=== PATIENT | female | born 1970 | race Caucasian/White ===

== ENCOUNTER 2023-10-12 22:28 | Emergency (ER) | payer OTHER, SELFPAY ==
[2023-10-12 22:29] VITALS: BP 160/106
[2023-10-12 22:49] VITALS: BMI 27.1
[2023-10-12 22:56] VITALS: BP 155/90
[2023-10-12 23:00] VITALS: BP 141/98
[2023-10-12 23:00] LABS: % Basophils 0.8 % (0-2); % Eosinophils 2.8 % (0-6); % Immature Granulocytes 0.2 % (0-0.5); % Lymphocytes 33.3 % (20.5-51.1); % Neutrophils 51.9 % (42.2-75.2); Absolute Basophils 0.1 10^3/uL (0-0.2); Absolute Eosinophils 0.2 10^3/uL (0-0.7); Absolute Lymphocytes 2.2 10^3/uL (1.2-3.4); Absolute Monocytes 0.7 10^3/uL (0.1-0.6); Absolute Neutrophils 3.4 10^3/uL (1.4-6.5); Hematocrit 39.9 % (37.0-47.0); Hemoglobin 13.7 g/dL (12.0-16.0); Mean Corp Hgb Conc. 34.3 g/dL (33.0-37.0); Mean Corpuscular Hgb 30.3 pg (27.0-31.0); Mean Corpuscular Volume 88.3 fL (81.0-99.0); Nucleated Red Blood Cells % 0 %; Platelet Count 212 10^3/uL (130-400); Red Blood Cell Count 4.52 10^6/uL (4.20-5.40); Red Cell Dist. Width 11.4 % (11.5-14.5); White Blood Cell Count 6.5 10^3/uL (4.8-10.8)
[2023-10-12 23:27] LABS: Troponin I < 0.012 ng/ml
[2023-10-12 23:32] LABS: ALT (SGPT) 28 U/L (0-35); AST (SGOT) 22 U/L (14-36); Alkaline Phosphatase 82 U/L (38-126); Blood Urea Nitrogen 12 mg/dl (7-17); Calcium 10.3 mg/dl (8.4-10.2); Carbon Dioxide 27 mmol/L (22-30); Chloride 103 mmol/L (98-107); Estimated Creatinine Clearance 88 ml/min; Glucose 88 mg/dl (70-99); Potassium 4.2 mmol/L (3.5-5.1); Sodium 142 mmol/L (135-145); Total Bilirubin 0.4 mg/dl (0.2-1.3); Total Protein 6.9 g/dl (6.3-8.2); eGFR > 60.00
--- NOTE | 2023-10-12 23:54 | ED.GENMED ---
History of Present Illness
General
Chief Complaint: Chest Pain
Source: patient and family
Exam Limitations: none
Time Seen by Provider: 10/12/23 22:55
Nursing documentation reviewed up to this point in time: agreed with
Travel History
Have you had any contact with someone who has COVID-19?: No
Do you have any symptoms of coronavirus? Fever > 100 degrees, chills, cough, shortness of breath, sore throat, loss of taste or smell, muscle aches, or headache?: No
History of Present Illness
History of Present Illness:
Pleasant 53-year-old female that presents with shortness of breath that has been present for the last 5 days. She states that she has had chest pain for the last 3 days. She reports that the chest pain has worsened over the last 2 days. Patient
denies fever, chills, nausea or vomiting. Reports no shortness of breath while at rest. Denies cardiac history but does report a family history of pulmonary emboli. Her mother has had multiple pulmonary emboli. Patient has no history of PE.
Past History
Past History
ED Past Medical History: Asthma
ED Past Surgical History: Appendectomy, Cholecystectomy, , Gynecological and Tonsilectomy
Social History
Tobacco: Non-smoker
Alcohol: None
Drug: None
Living: with family
Employment: Employed
Review of Systems
Review of Systems
Allergies reviewed?: Yes
Other source history: family
All Other Systems: ROS reviewed and negative except as documented in HPI and ROS
Constitutional: Reports no symptoms
EENT: Reports no symptoms
Respiratory: Reports trouble breathing
Cardiac: Reports chest pain
ABD/GI: Reports no symptoms
: Reports no symptoms
Musculoskeletal: Reports no symptoms
Skin: Reports no symptoms
Neurological: Reports no symptoms
Endocrine: Reports no symptoms
Hematologic/Lymphatic: Reports no symptoms
Psychiatric: Reports no symptoms
Phy Exam
General Physical Exam
General Presentation: well appearing and no apparent distress
General Skin: warm and dry
General Habitus: normal
General Mental: alert
General Hydration: appears well hydrated
ENT Exam
ENT Exam: EOMI, pharynx normal, neck supple and normocephalic
Eye Exam
Eye Exam: PERRL, cornea clear and conjunctiva normal
Cardiovascular Exam
Cardiovascular Exam: regular rate/rhythm, no edema, no murmur and normal peripheral pulses
Pulmonary Exam
Pulmonary Exam: lungs clear, no respiratory distress, no rales, no crackles, no rhonchi, no stridor, no wheezing and no cough
Gastrointestinal Exam
Gastrointestinal Exam: normal bowel sounds, non tender, soft, no organomegaly, no pulsatile mass and non distended
Neurological Exam
Neurological Exam: alert, oriented x3, no motor deficits and speech normal
Musculoskeletal Exam
Musculoskeletal Exam: full ROM, no edema and other (Right calf tenderness which she states is chronic but has been bothering her more recently.)
Skin Exam
Skin Exam: normal color, warm/dry, no rash and no petechia
Psychiatric Exam
Psychiatric Exam: normal mood/affect
Scores
Heart Score for Chest Pain Patients
STEMI patient?: No
History: Slightly or Non-Suspicious
ECG: Normal
Age: >45 - <65 years
Risk Factors: 1 or 2 Risk Factors
Troponin: </= Normal Limit
Heart Score for Chest Pain Patients: 2
Heart Score Risk: 2.5% MACE over next 6 weeks
PE Wells Score
Symptoms of DVT: Yes
No alternative diagnosis better explains the illness: No
Tachycardia with pulse > 100: No
Immobilization (>=3 days) or surgery within previous 4 weeks: No
Prior history of DVT or pulmonary embolism: No
Presence of hemoptysis: No
Presence of malignancy: No
Pulmonary Embolism Risk Score: 0
Probability of PE: Pt is low risk
Course
Orders/Labs/Results
Orders:
Orders
10/12/23 22:32
Electrocardiogram (*1) Urgent
Reason for Study: Chest Pain
Other Reason for Exam: SOB
EKG- Treatment ONCE
10/12/23 22:54
CMP [Comprehensive Metabolic Panel] Urgent
Complete Blood Count/With Diff Urgent
HCG, Serum Qualitative Screen Urgent
Comment: ADD ON
Troponin I Urgent
10/13/23 00:07
Electrocardiogram (*1) Urgent
Reason for Study: Chest Pain
EKG- Treatment ONCE
US Legs, Right [US Periph Venous LOWER Ext RT] Urgent
Comment:
Reason For Exam: right calf tenderness acute on chronic
10/13/23 00:13
D-Dimer Urgent
Troponin I Urgent
10/13/23 00:59
CT Chest Pe Study Urgent
Comment:
Reason For Exam: cp, dyspnea, elev ddimer
10/13/23 01:00
Add On- LAB Urgent
Tests Added?: serum hcg
Abnormal Lab Results
10/12/23 10/13/23
22:54 00:13
RDW 11.4 L %
(11.5-14.5)
MPV 11.0 H fL
(7.4-10.4)
Absolute Monos (auto) 0.7 H 10^3/uL
(0.1-0.6)
Monocytes % 11.0 H %
(1.7-9.3)
D-Dimer 0.92 H ug/mlFEU
(0.00-0.50)
Calcium 10.3 H mg/dl
(8.4-10.2)
10/12/23 22:54
10/12/23 22:54
Vital Signs
Initial and Last Documented VS:
Initial Vital Signs
Temp Pulse Resp BP Pulse Ox
97.5 F 74 20 160/106 100
10/12/23 22:29 10/12/23 22:29 10/12/23 22:29 10/12/23 22:29 10/12/23 22:29
Last Documented Vital Signs
Temp Pulse Resp BP Pulse Ox
97.5 F 78 17 138/91 97
10/12/23 22:29 10/13/23 01:45 10/13/23 01:45 10/13/23 01:00 10/13/23 01:45
MDM/Problems Addressed
Differential Diagnosis Includes:
Musculoskeletal chest pain, ACS, PE, pleurisy, costochondritis
Chronic conditions affecting care:
Chronic right calf pain
Acute Exacerbation and/or Progression of Chronic Illness: HTN
*Radiology
Radiology exam reviewed: other (Ultrasound of right leg negative for DVT)
*Pulse Oximetry
Patient hypoxic: no
*EKG
Interpreted by ED Provider?: Yes
EKG Intrepretation Date: 10/12/23
Interpretation: normal
Comparison EKG: no changes
Heart Rate: 74
Rate: normal
[place]: left axis deviation
Interval: normal interval
QRS Pattern: normal QRS
Ischemia: no ischemia
*Critical Care Note
Total Time (30-74mins, 75-104mins- exclusive of procedures): Not Applicable
Update Note
Update Note:
CTA CHEST
IMPRESSION:
1. Adequate technical study. No acute pulmonary embolism.
2. No thoracic aortic aneurysm or acute aortic dissection. Bibasilar atelectasis
Incidentals:
-Status post cholecystectomy
- No acute osseous abnormality.
- No acute abnormality within the visualized abdomen.
- No thoracic lymphadenopathy or suspicious lymph nodes.
ED Attending Note
-
Portions of this chart may have been created with voice recognition software.� Occasional wrong word or��sound alike� substitutions may have occurred due to the inherent limitations of voice recognition software.
Discharge Plan
Departure
Patient Disposition: Home (Routine Discharge)
Date of Disposition: 10/13/23
Time of Disposition: 01:49
Patient with high blood pressure during this ER visit?: No
Condition: Good
Discharge Problem:
Chest pain
Instructions: *CBC Heart Failure Instructions, Chest Pain CBC Follow Up
Prescriptions:
No Action
fluticasone propionate 1 SPRAY spray,suspension
1 spray intranasal DAILY
melatonin 1 MG tablet
1.5 mg PO HSPRN PRN (Reason: insomnia)
lisinopril 20 MG tablet
20 mg PO DAILY
prednisone 50 MG tablet
50 mg PO DAILY Qty: 5 0RF
albuterol sulfate [Proventil HFA] 90 MCG/PUFF HFA aerosol inhaler
1 puff inhalation Q4HPRN PRN (Reason: shortness of breath) Qty: 1 0RF
Referrals:
Jung Boone MD [Family Provider] -
Activity Restrictions/Additional Instructions:
It was a pleasure meeting you and taking part in your care. We hope for your continued healing and wellness.
Please read discharge instructions in their entirety. However, they are for general education and may not describe your exact diagnosis at discharge. Information on your ER visit and medical conditions were discussed with you along with appropriate
follow up information...
If indicated, please take your medications as instructed and indicated on discharge paperwork.
Please schedule a follow up appointment as directed. Call to schedule an appointment
Please return to the emergency department with ANY change in, persisting, or worsening of symptoms. If any of your symptoms do not improve, or persist, or become more severe within 6-12 hours, please return to the emergency department for further
care.
Please return to the emergency department if you develop a headache, neck pain/stiffness, fever greater than 100.4F, chest pain, shortness of breath, persistent nausea, vomiting, slurred speech, difficulty walking, numbness/tingling, weakness, signs
of infection or any other symptoms that are worrisome to you.
If you have any questions or concerns please do not hesitate to call the Hospital at or E-mail me directly at [email or web address]
Interventions
Interventions:
*Risk Screen - Suicide Last Done: 10/12/23 22:29
*Neglect/Abuse Screening Last Done: 10/12/23 22:29
*ED COVID-19 Vaccine History Last Done: 10/12/23 22:42
*Nursing Disposition Last Done: 10/13/23 02:00
ED- Cardiac Assessment Last Done: 10/12/23 22:49
ED- Pulmonary Assessment Last Done: 10/12/23 22:49
Discharge Date and Time
Discharge Date/Time: 10/13/23 02:01
[2023-10-13] VITALS: BP 117/74
[2023-10-13 00:46] LABS: D-Dimer 0.92 ug/mlFEU (0.00-0.50)
[2023-10-13 01:00] VITALS: BP 138/91
[2023-10-13 01:00] LABS: Troponin I < 0.012 ng/ml
[2023-10-13 01:12] LABS: HCG, Serum Qualitative Screen Negative
== END 2023-10-13 02:01 | disposition home or self-care (01) ==
LOC: EMR 22:28
PROVIDERS: Emergency Medicine; EMERGENCY PHYSICIAN Student in an Organized Health Care Education/Training Program; FAMILY PHYSICIAN Family Medicine
DX: R07.89 Other chest pain (principal); R06.02 Shortness of breath; J45.909 Unspecified asthma, uncomplicated; Z90.49 Acquired absence of other specified parts of digestive tract; Z88.5 Allergy status to narcotic agent; Z88.0 Allergy status to penicillin; Z88.2 Allergy status to sulfonamides; Z91.040 Latex allergy status; Z91.048 Other nonmedicinal substance allergy status
CPT/HCPCS: 99285; 71275; 80053; 84484; 84703; 85025; 85379; 93005; 93971; Q9967

== ENCOUNTER → 2023-12-01 10:00 | Outpatient (REF) | payer OTHER, SELFPAY | LOC: HWRAD 10:00 | PROVIDERS: ATTENDING PHYSICIAN Family Medicine | DX: E21.3 Hyperparathyroidism, unspecified (principal) | CPT/HCPCS: 74018; 77080 ==

== ENCOUNTER → 2024-03-26 17:12 | Outpatient (REF) | payer OTHER, SELFPAY | LOC: RAD 17:12 | PROVIDERS: ATTENDING PHYSICIAN Physician Assistant; FAMILY PHYSICIAN Family Medicine | DX: E34.9 Endocrine disorder, unspecified (principal); E04.2 Nontoxic multinodular goiter | CPT/HCPCS: 76536 ==

== ENCOUNTER → 2024-06-10 10:16 | Outpatient (REF) | payer OTHER, SELFPAY | LOC: PAVMRI 10:16 | PROVIDERS: ATTENDING PHYSICIAN Family Medicine | DX: R51.9 Headache, unspecified (principal) | CPT/HCPCS: 70551 ==

== ENCOUNTER → 2024-10-15 16:39 | Outpatient (REF) | payer OTHER, SELFPAY | LOC: HWRAD 16:39 | PROVIDERS: ATTENDING PHYSICIAN Family Medicine | DX: R06.2 Wheezing (principal) | CPT/HCPCS: 71046 ==

== ENCOUNTER 2024-11-25 10:04 | Emergency (ER) | payer OTHER, SELFPAY ==
[2024-11-25 10:06] VITALS: BP 159/88
--- NOTE | 2024-11-25 10:38 | ED.GENMED ---
History of Present Illness
General
Chief Complaint: Cardiac Symptoms
Time Seen by Provider: 11/25/24 10:38
History of Present Illness
History of Present Illness:
TIME OF INITIAL ENCOUNTER: 10:45 AM
HPI: Over the past 2 to 3 days, the patient describes left-sided paresthesias to the face. She also has left upper extremity paresthesias primarily to the pinky side. She spoke to her PMD by email who wanted her to come in here for further
evaluation. She also mentioned that her blood pressure had been high recently. She has no chest pain.
EXAM:
GENERAL: Well appearing in no distress
HEENT: Moist oral mucosa
CARDIOVASCULAR: No murmurs, normal heart rate, regular rhythm, No chest wall tenderness
PULMONARY: No respiratory distress, breath sounds are clear and equal
ABDOMEN: Soft with no peritoneal signs, no tenderness
NEUROLOGIC: Excellent strength all extremities, no coordination deficits, no facial asymmetry, maybe some decrease sensation of the left side of the face, equal sensation to the upper extremities, no motor deficits
PSYCHIATRIC: Appropriate mental status, normal insight and judgement
EXTREMITIES: Nontender, no edema, moves all extremities equally
SKIN: No rash, no lesions
NUMBER AND COMPLEXITY OF PROBLEMS ADDRESSED AT THE ENCOUNTER
� Chronic conditions affecting care: No significant past medical history however she states she has chronic Garza's
� Acute Exacerbation and/or Progression of Chronic Illness: This is a subacute/acute problem
� Differential Diagnosis includes: Nonspecific paresthesias, electrolyte abnormality, highly doubt ACS
AMOUNT AND/OR COMPLEXITY OF DATA TO BE REVIEWED AND ANALYZED
� I performed an independent evaluation of and my interpretation is:
EKG: Sinus 69, left axis deviation, borderline LVH
CT: CT head shows no acute abnormality
X-rays:
Laboratory Studies: Troponin less than 0.012, chemistries unremarkable, CBC and hemoglobin normal
Other:
� Review of other/old records: I reviewed records. The patient was seen here in the emergency department about a year ago with chest discomfort.
� Clinical information was obtained by an independent historian: None needed
� Prescriptions/Medications Considered but not given:
� Further testing considered but not performed:
RISK OF COMPLICATIONS AND/OR MORBIDITY OR MORTALITY OF PATIENT MANAGEMENT
� Social determinants of health affecting care: Lives at home
� Discussion with other providers:
� Escalation of care including admission/observation vs risk of discharge considered: Basic blood work and CT imaging unremarkable. The symptoms are very minimal currently. She does have a neurologist as an outpatient to
follow[facility].
ANY OTHER UPDATES:
Past History
Past History
ED Past Medical History: Asthma
ED Past Surgical History: Appendectomy, Cholecystectomy, , Gynecological and Tonsilectomy
Social History
Tobacco: Non-smoker
Alcohol: None
Drug: None
Living: with family
Employment: Employed
Phy Exam
Physical Exam
Physical Exam:
See HPI
Course
Orders/Labs/Results
Orders:
Orders
11/25/24 10:06
Electrocardiogram (*1) Urgent
Reason for Study: Chest Pain
EKG- Treatment ONCE
11/25/24 10:58
CT Head W/o Iv Contrast Urgent
Comment:
Reason For Exam: L facial paresthesias, LUE paresthesias
11/25/24 11:06
Basic Metabolic Panel Urgent
Complete Blood Count/With Diff Urgent
Magnesium Urgent
Troponin I Urgent
Abnormal Lab Results
11/25/24
11:06
MPV 11.2 H fL
(7.4-10.4)
Monocytes % 10.8 H %
(1.7-9.3)
Glucose 105 H mg/dl
(70-99)
11/25/24 11:06
11/25/24 11:06
Vital Signs
Initial and Last Documented VS:
Initial Vital Signs
Temp Pulse Resp BP Pulse Ox
37.1 C 77 16 159/88 97
11/25/24 10:06 11/25/24 10:06 11/25/24 10:06 11/25/24 10:06 11/25/24 10:06
Last Documented Vital Signs
Temp Pulse Resp BP Pulse Ox
37.1 C 76 16 123/76 97
11/25/24 10:06 11/25/24 12:45 11/25/24 12:45 11/25/24 12:00 11/25/24 12:45
*Critical Care Note
Total Time (30-74mins, 75-104mins- exclusive of procedures): Not Applicable
ED Attending Note
-
Portions of this chart may have been created with voice recognition software.� Occasional wrong word or��sound alike� substitutions may have occurred due to the inherent limitations of voice recognition software.
Discharge Plan
Departure
Patient Disposition: Home (Routine Discharge)
Date of Disposition: 11/25/24
Time of Disposition: 12:46
Patient with high blood pressure during this ER visit?: Yes
Discharge Problem:
Paresthesia
Instructions: BLOOD PRESSURE
Prescriptions:
No Action
fluticasone propionate 1 SPRAY spray,suspension
1 spray intranasal DAILY
melatonin 1 MG tablet
1.5 mg PO HSPRN PRN (Reason: insomnia)
lisinopril 20 MG tablet
20 mg PO DAILY
prednisone 50 MG tablet
50 mg PO DAILY Qty: 5 0RF
albuterol sulfate [Proventil HFA] 90 MCG/PUFF HFA aerosol inhaler
1 puff inhalation Q4HPRN PRN (Reason: shortness of breath) Qty: 1 0RF
Referrals:
Jung Boone MD [Family Provider] -
Activity Restrictions/Additional Instructions:
The cause of your symptoms is unclear. Basic blood work including your electrolytes as well as cardiac blood work were all normal. The CAT scan of the brain showed no acute abnormality. I recommend that you follow-up with your neurologist through
[facility]. Return here if worse or other concerns.
Interventions
Interventions:
*Risk Screen - Suicide Last Done: 11/25/24 10:08
*General Assessment Last Done: 11/25/24 11:31
*Neglect/Abuse Screening Last Done: 11/25/24 10:08
*ED- Fall Risk Assessment Last Done: 11/25/24 11:31
*ED COVID-19 Vaccine History Last Done: 11/25/24 11:31
*Nursing Disposition Last Done: 11/25/24 13:00
ED- Pulmonary Assessment Last Done: 11/25/24 11:10
ED- Cardiac Assessment Last Done: 11/25/24 11:10
Discharge Date and Time
Discharge Date/Time: 11/25/24 13:10
Print Language: CENTRAL AFRICAN
[2024-11-25 10:51] VITALS: BP 150/89
[2024-11-25 11:16] LABS: % Eosinophils 2.5 % (0-6); % Immature Granulocytes 0.2 % (0-0.5); % Lymphocytes 27.9 % (20.5-51.1); % Monocytes 10.8 % (1.7-9.3); % Neutrophils 57.6 % (42.2-75.2); Absolute Basophils 0.1 10^3/uL (0-0.2); Absolute Eosinophils 0.1 10^3/uL (0-0.7); Absolute Lymphocytes 1.3 10^3/uL (1.2-3.4); Absolute Monocytes 0.5 10^3/uL (0.1-0.6); Absolute Neutrophils 2.8 10^3/uL (1.4-6.5); Hematocrit 40.3 % (37.0-47.0); Hemoglobin 13.3 g/dL (12.0-16.0); Mean Corpuscular Hgb 29.7 pg (27.0-31.0); Mean Platelet Volume 11.2 fL (7.4-10.4); Nucleated Red Blood Cells % 0 %; Platelet Count 216 10^3/uL (130-400); Red Blood Cell Count 4.48 10^6/uL (4.20-5.40); Red Cell Dist. Width 12.1 % (11.5-14.5); White Blood Cell Count 4.8 10^3/uL (4.8-10.8)
[2024-11-25 11:26] LABS: Blood Urea Nitrogen 11 mg/dl (7-17); Calcium 9.3 mg/dl (8.4-10.2); Carbon Dioxide 29 mmol/L (22-30); Chloride 105 mmol/L (98-107); Glucose 105 mg/dl (70-99); Magnesium 2.1 mg/dl (1.6-2.3); Potassium 3.9 mmol/L (3.5-5.1); Sodium 140 mmol/L (135-145); eGFR > 60.00
[2024-11-25 11:34] VITALS: BMI 25.4
[2024-11-25 11:37] LABS: Troponin I < 0.012 ng/ml
[2024-11-25 12:00] VITALS: BP 123/76
== END 2024-11-25 13:10 | disposition home or self-care (01) ==
LOC: EMR 10:04
PROVIDERS: EMERGENCY PHYSICIAN Emergency Medicine; FAMILY PHYSICIAN Family Medicine
DX: R20.2 Paresthesia of skin (principal); J45.909 Unspecified asthma, uncomplicated; Z90.49 Acquired absence of other specified parts of digestive tract
CPT/HCPCS: 99284; 70450; 80048; 83735; 84484; 85025; 93005